=== PATIENT | female | born 2000 | race Two or more races ===

== ENCOUNTER 2024-02-03 14:26 | Emergency (ER) | payer OTHER, BC ==
[2024-02-03 14:39] VITALS: BP 118/74; PULSE 69; RESP 20; TEMP 97.8; BMI 24.0
[2024-02-03 18:05] LABS: HIV INTERPRETATION NEGATIVE (NEGATIVE)
== END 2024-02-03 16:27 | disposition home or self-care (01) ==
LOC: JER 14:26 → JERFT 14:26
DX: M54.9 Dorsalgia, unspecified (principal); V49.40XA Driver injured in collision with unspecified motor vehicles in traffic accident, initial encounter; Y92.410 Unspecified street and highway as the place of occurrence of the external cause
CPT/HCPCS: 36415; 86803; 87389; 99283-25